=== PATIENT | male | born 1975 ===

== ENCOUNTER 2017-06-06 12:46 | Emergency (ER) | payer MEDICAID ==
[2017-06-06 12:56] VITALS: TEMP 98.3
[2017-06-06] MEDS ORDERED: Sodium Chloride 0.9% Inh Soln (3mL) UD INH ONE (13:18)
--- NOTE | 2017-06-06 13:22 | C.PDOC ---
Time Seen by Provider: 06/06/17 13:07 Chief Complaint (Nursing): Shortness Of Breath Past Medical History Vital Signs: Last Vital Signs Temp 98.3 F 06/06/17 12:54 Pulse 76 06/06/17 12:54 Resp 18 06/06/17 12:54 BP 137/94 H 06/06/17 12:54 Pulse Ox 97 06/06/17 12:54 - Social History Hx Alcohol Use: No Hx Substance Use: No - Immunization History Hx Tetanus Toxoid Vaccination: No Hx Influenza Vaccination: No Hx Pneumococcal Vaccination: No ED Course And Treatment O2 Sat by Pulse Oximetry: 97
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
[2017-06-06 14:24] LABS: ARTERIAL BLOOD GAS HEMOGLOBIN 14.5 g/dL (11.7-17.4); ARTERIAL BLOOD GAS O2 SAT 98.2 % (95-98)
[2017-06-06 15:12] VITALS: BP 136/92; PULSE 90; RESP 16; O2SAT 97
== END 2017-06-06 15:14 | disposition home or self-care (01) ==
LOC: C.ER 12:46
DX: R06.02 Shortness of breath (principal); X08.00XA Exposure to bed fire due to unspecified burning material, initial encounter; Y92.003 Bedroom of unspecified non-institutional (private) residence as the place of occurrence of the external cause